=== PATIENT | female | born 1960 | race Caucasian/White ===

== ENCOUNTER 2024-07-09 05:54 | Inpatient (IN) | payer OTHER, BC ==
[~2024-07-09] VITALS: Ht 162.6 cm; Wt 107.3 kg
[2024-07-09 06:24] LABS: BASOPHILS ABSOLUTE AUTO 0.04 K/mm3 (0.00-0.23); BASOPHILS PERCENT AUTO 0 % (0-2); EOSINOPHILS PERCENT AUTO 0 % (0-6); Hematocrit 40.6 % (33.0-51.0); Hemoglobin 13.6 g/dL (11.5-16.0); IMMATURE GRAN ABSOLUTE AUTO 0.11 K/mm3 (0.00-0.10); IMMATURE GRAN PERCENT AUTO 1 % (0-1); LYMPHOCYTES ABSOLUTE AUTO 2.11 K/mm3 (0.84-5.20); LYMPHOCYTES PERCENT AUTO 14 % (21-46); MONOCYTES ABSOLUTE AUTO 1.15 K/mm3 (0.16-1.47); MONOCYTES PERCENT AUTO 8 % (4-13); Mean Corpuscular HGB 27.4 pg (26.0-34.0); Mean Corpuscular HGB Conc 33.5 g/dL (31.5-36.5); Mean Corpuscular Volume 82 fL (80-100); NEUTROPHILS ABSOLUTE AUTO 11.53 K/mm3 (1.96-9.15); NEUTROPHILS PERCENT AUTO 77 % (41-73); Platelet Count 322 K/mm3 (150-400); RDW Coefficient Variation 12.8 % (11.7-14.2); RDW Standard Deviation 37.9 fL (35.1-46.3); Red Blood Cell Count 4.97 M/mm3 (3.80-5.20); White Blood Cell Count 14.94 K/mm3 (4.00-11.30)
[2024-07-09 06:33] LABS: Source, Urine Straight Cath
[2024-07-09 06:41] LABS: Bilirubin, Urine Neg (Neg); Blood, Urine 2+ (Neg); Glucose Qualitative, Urine 4+ (Neg); Ketones, Urine 3+ (Neg); Leukocyte Esterase, Urine 2+ (Neg); Nitrite, Urine Neg (Neg); Protein, Urine 3+ (Neg); Specific Gravity, Urine 1.025 (1.003-1.022); Urobilinogen, Urine NORM (Normal)
[2024-07-09 06:45] LABS: International Normalized Ratio 1.08; Prothrombin Time Results 11.5 Sec (9.7-11.5)
[2024-07-09 06:48] LABS: Appearance, Urine Cloudy (Clear); Color, Urine Yellow (P-Yellow)
[2024-07-09 06:51] LABS: Albumin, Blood 3.3 g/dL (3.4-5.0); Albumin/Globulin Ratio 0.8 (0.8-1.8); Bilirubin, Total 0.7 mg/dL (0.1-1.0); Bun/Creatinine Ratio 22.5 (12.0-20.0); Calcium, Blood 8.5 mg/dL (8.5-10.1); Creatinine, Blood 0.89 mg/dL (0.40-1.00); Potassium, Blood 3.9 mmol/L (3.5-5.5); Total Protein, Blood 7.3 g/dL (6.4-8.2)
[2024-07-09 06:55] LABS: Bacteria Many /hpf; Red Blood Cells, Urine 0-2 /hpf (0-2); Squamous Epithelial Cells Rare /hpf (Few); White Blood Cells, Urine 50-100 /hpf (0-5)
[2024-07-09] MEDS ORDERED: CefTRIAXone Sodium 1,000 MG in NS 50 ML IV ONE (07:10)
[2024-07-09] MEDS ORDERED: NS 1,000 ML IV SCH ×2 (07:15→10:50)
[2024-07-09] MEDS ORDERED: LORazepam 2 MG/ML 1ML Injection IV ONE (07:20)
[2024-07-09] MEDS ORDERED: Ketamine HCl 100 MG / ML 5ML Vial IV ONE (08:15)
[2024-07-09 08:50] LABS: Influenza A, PCR NEGATIVE (NEGATIVE); Influenza B, PCR NEGATIVE (NEGATIVE); Resp Syncytial Virus, PCR NEGATIVE (NEGATIVE); SARS-Cov-2 (COVID-19) PCR, MMC NEGATIVE (NEGATIVE)
[2024-07-09] MEDS ORDERED: FLU VACC TS2024-25(6MOS UP)/PF 45 MCG/0.5 ML SYRINGE IM SCH (10:50)
[2024-07-09] MEDS ORDERED: Ondansetron HCl 2 MG / ML 2ML Vial IV PRN (10:50)
[2024-07-09] MEDS ORDERED: Azithromycin 500 MG in NS 250 ML IV SCH (10:59)
[2024-07-09] MEDS ORDERED: Acetaminophen 325 MG Supp PR PRN (11:20)
[2024-07-09] MEDS ORDERED: HydrALAZINE HCl 20 MG / ML 1ML Vial IV PRN (11:25)
[2024-07-09] MEDS ORDERED: Insulin Regular 100 UNIT/ML 10ML Vial SC SCH (11:30)
[2024-07-09 12:09] LABS: U Amphetamine Screen Not Detected; U Barbituate Screen Not Detected; U Benzodiazapine Screen Not Detected; U Buprenorphine Screen Not Detected; U Cannabinoids Screen DETECTED; U Cocaine Screen Not Detected; U Methadone Screen Not Detected; U Methamphetamine Screen Not Detected; U Opiates Screen DETECTED; U Oxycodone Screen Not Detected; U Phencyclidine Screen Not Detected
[2024-07-09 12:24] VITALS: BP 172/77
[2024-07-09 13:57] LABS: Adenovirus Not Detected (NOT DETECT); Bordetella pertussis Not Detected (NOT DETECT); Chlamydophila pneumoniae Not Detected (NOT DETECT); Coronavirus 229E Not Detected (NOT DETECT); Coronavirus HKU1 Not Detected (NOT DETECT); Coronavirus NL63 Not Detected (NOT DETECT); Coronavirus OC43 Not Detected (NOT DETECT); Human Metapneumovirus Not Detected (NOT DETECT); Human Rhinovirus/Enterovirus Not Detected (NOT DETECT); Influenza A/2009-H1 Not Detected (NOT DETECT); Influenza A/H1 Not Detected (NOT DETECT); Influenza A/H3 Not Detected (NOT DETECT); Influenza B Not Detected (NOT DETECT); Mycoplasma pneumoniae Not Detected (NOT DETECT); Parainfluenza Virus 1 Not Detected (NOT DETECT); Parainfluenza Virus 2 Not Detected (NOT DETECT); Parainfluenza Virus 3 Not Detected (NOT DETECT); Parainfluenza Virus 4 Not Detected (NOT DETECT); Respiratory Syncytial Virus Not Detected (NOT DETECT); SARS-Cov-2 (COVID-19), BioFire Not Detected (NOT DETECT)
--- NOTE | 2024-07-09 14:18 | NUR ---
PATIENT TRANSFERRED FROM ER TO MED SURG. PATIENT IS NOT ABLE TO RESPOND TO QUESTIONS HOWEVER IS ABLE TO RESPOND TO TOUCH HOWEVER DOES NOT OPEN EYES. PATIENT LIFE PARTNER ASHA IS IN ROOM AT BEDSIDE. LIFE PARTNER WAS UNABLE TO REMEMBER WHICH MEDICATION PATIENT IS ON HOWEVER DOES KNOW SHE FILLS AT [facility]. PATIENT IS DM HOWEVER IS UNSURE OF AMOUNT OF INSULIN DOES REMEMBER PATIENT USES NOVLIN 70/30. PATIENT NOMRALLY IS INDEPENDENT AT BASELINE. 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
[2024-07-09] MEDS ORDERED: BACL10 PO (15:23)
[2024-07-09] MEDS ORDERED: GLIP5ER PO (15:24)
[2024-07-09] MEDS ORDERED: METF500C PO (15:25)
[2024-07-09] MEDS ORDERED: LOSA25 PO (15:26)
[2024-07-09] MEDS ORDERED: NOVOLIN 70100 UNIT/4 SC (15:27)
[2024-07-09] MEDS ORDERED: CODACE30 (15:27)
[2024-07-09] MEDS ORDERED: OMEGA-3 1,0501 EACH PO (15:28)
[2024-07-09 15:31] VITALS: BP 176/82
--- NOTE | 2024-07-09 17:41 | NUR ---
PATIENT A/O X 1. PATIENT ONLY ANSWER YES TO ALL QUESTIONS WITH MUMBLING. PATIENT HAS BEEN SLEEPING HOWEVER IS AROUSABLE WHEN YOU CALL HER NAME. PATIENTS LIFE PARTNER ASHA IS AT BEDSIDE WITH PATIENT. ASHA STATES PATIENT MAY HAVE EATEN A GUMMY THAT WAS SUPPOSED TO BE CBD HOWEVER UNSURE IF IT HAD THC. ASHA IS UNSURE IF THIS EVEN OCCURED. PATIENT HAS 4 IVS RIGHT AC, RIGHT FOREARM, LEFT WRIST, LEFT FOREARM. IV RUNNING AT 100/ML HR OF NACL. MEDICATION RECONCILLATION HAS BEEN COMPLETED RECEIVED MEDICATION INFOMRATION FROM [facility] IN [place].
[2024-07-09 19:47] VITALS: BP 150/68
[2024-07-09] MEDS ORDERED: Lactobacil 2-S.Thermo-Bifido 1 1 Cap PO SCH (21:00)
[2024-07-10 04:22] VITALS: BP 184/74
[2024-07-10 05:44] LABS: BASOPHILS ABSOLUTE AUTO 0.05 K/mm3 (0.00-0.23); BASOPHILS PERCENT AUTO 0 % (0-2); EOSINOPHILS PERCENT AUTO 0 % (0-6); Hematocrit 37.7 % (33.0-51.0); Hemoglobin 12.7 g/dL (11.5-16.0); IMMATURE GRAN ABSOLUTE AUTO 0.08 K/mm3 (0.00-0.10); IMMATURE GRAN PERCENT AUTO 1 % (0-1); LYMPHOCYTES ABSOLUTE AUTO 2.32 K/mm3 (0.84-5.20); LYMPHOCYTES PERCENT AUTO 16 % (21-46); MONOCYTES ABSOLUTE AUTO 1.17 K/mm3 (0.16-1.47); MONOCYTES PERCENT AUTO 8 % (4-13); Mean Corpuscular HGB 27.5 pg (26.0-34.0); Mean Corpuscular HGB Conc 33.7 g/dL (31.5-36.5); Mean Corpuscular Volume 82 fL (80-100); Mean Platelet Volume 10.2 fL (9.1-12.4); NEUTROPHILS ABSOLUTE AUTO 10.75 K/mm3 (1.96-9.15); NEUTROPHILS PERCENT AUTO 75 % (41-73); Platelet Count 264 K/mm3 (150-400); RDW Coefficient Variation 12.6 % (11.7-14.2); RDW Standard Deviation 37.4 fL (35.1-46.3); Red Blood Cell Count 4.61 M/mm3 (3.80-5.20); White Blood Cell Count 14.37 K/mm3 (4.00-11.30)
[2024-07-10 06:46] LABS: Albumin, Blood 2.9 g/dL (3.4-5.0); Albumin/Globulin Ratio 0.8 (0.8-1.8); Bilirubin, Total 0.7 mg/dL (0.1-1.0); Bun/Creatinine Ratio 28.5 (12.0-20.0); Calcium, Blood 8.1 mg/dL (8.5-10.1); Creatinine, Blood 0.74 mg/dL (0.40-1.00); Globulin, Blood 3.6 g/dL (2.2-4.0); Potassium, Blood 3.5 mmol/L (3.5-5.5); Total Protein, Blood 6.5 g/dL (6.4-8.2)
[2024-07-10 07:19] LABS: Base Excess Venous 1.9 mmol/L; Bicarbonate Venous 26.1 mmol/L (24.0-30.0); PCO2 Venous 38.7 mmHg (38-42); pH Blood Venous 7.44 (7.34-7.37)
[2024-07-10 07:30] VITALS: BP 164/87
--- NOTE | 2024-07-10 07:53 | NUR ---
SHIFT SUMMARY PT HAS BEEN MINIMALLY RESPONSIVE THROUGH ENTIRE SHIFT. WILL OPEN HER EYES OCCASIONALLY, NOT TRACKING. PT S LIFE PARTNER HAS BEEN AT BEDSIDE THROUGHOUT SHIFT. 0615, THIS RN NOTED IV FLUIDS HANGING HAD A DIFFERENT APPEARANCE THAN WHEN IT WAS ORIGINALLY HUNG. BAG AND LINE REPLACED. DOCTOR KNOWLES ORDERED CBC, CMP, AND VBG. ORDER SUBMITTED AND RESULTS PENDING. WILL RELAY TO DAY SHIFT.
[2024-07-10] MEDS ORDERED: Enoxaparin 40 MG/0.4 ML SYR SC SCH (09:00)
[2024-07-10] MEDS ORDERED: CefTRIAXone Sodium 1,000 MG in NS 100 ML IV SCH (12:00)
[2024-07-10 13:59] LABS: Campylobacter Sp Not Detected (NOT DETECT); Cryptosporidium Not Detected (NOT DETECT); Cyclospora Cayetanensis Not Detected (NOT DETECT); E. Coli O157 Not Detected (NOT DETECT); Entamoeba Histolytica Not Detected (NOT DETECT); Enteroaggregative E. coli-EAEC Not Detected (NOT DETECT); Enteropathogenic E. coli-EPEC Not Detected (NOT DETECT); Enterotoxigenic E. coli-ETEC Not Detected (NOT DETECT); Plesiomonas Shigelloides Not Detected (NOT DETECT); Salmonella Sp Not Detected (NOT DETECT); Shiga Toxin-prod E. coli-STEC Not Detected (NOT DETECT); Shigella/Enteroin E. coli-EIEC Not Detected (NOT DETECT); Vibrio Cholerae Not Detected (NOT DETECT); Vibrio Sp Not Detected (NOT DETECT); Yersinia Enterocolitica Not Detected (NOT DETECT)
[2024-07-10 14:00] LABS: Adenovirus F 40/41 Not Detected (NOT DETECT); Astrovirus Not Detected (NOT DETECT); Giardia Lamblia Not Detected (NOT DETECT); Norovirus GI/GII Not Detected (NOT DETECT); Rotavirus A Not Detected (NOT DETECT); Sapovirus Not Detected (NOT DETECT)
[2024-07-10 15:59] VITALS: BP 158/73
--- NOTE | 2024-07-10 17:45 | NUR ---
SHIFT SUMMARY- PT HAS IMPROVED COGNITIVELY T/O THE SHIFT TODAY. SHE IS ALERT AND ABLE TO FOLLOW SOME INSTRUCTIONS TODAY. SHE BEGAN USING SINGLE SMALL WORD ANSWERS THIS EVENING. PT IS A 1PA WITH TRANSFERS TO THE BEDSIDE COMMODE. CALLED DR LO THIS EVENING AND SPOKE TO HIM ABOUT THE PT NPO STATUS. SHE APPEARS TO BE A LITTLE SWOLLEN, EVEN THOUGH SHE IS NPO. HER BG HAS BEEN CONSISTENTLY GOING UP UNTIL THIS EVENING. INSULIN CHANGED TO Q6, IVF DECREASED TO 75ML/HR. GI PANEL CAME BACK NEGATIVE, ISO DC'D. SPOKE TO DR LO ABOUT THE CT RESULT TO SEE IF HE HAD SPOKEN TO THE PT AND HER SPOUSE ABOUT THE CT RESULT. HE HAS NOT, SO THE PT IS NOT AWARE OF THE RESULT AT THIS TIME. WILL PASS ON TO THE NIGHT RN IN BEDSIDE REPORT, WITH THE EXCLUSION OF RESULTS NOT DISCUSSED WITH THE PT AND FAMILY. PT IS DOWN TO 1 IV SITE, DRESSING WAS CHANGED FOR THAT IV SITE. IT IS INFUSING NS AT 75ML/HR. NO CURRENT S&S OF DISTRES NOTED.
[2024-07-10] MEDS ORDERED: Insulin Human Lispro 100 Units/ML 3ML Syringe SC SCH (18:00)
[2024-07-10 20:03] VITALS: BP 148/72
[2024-07-10] MEDS ORDERED: Ketorolac Tromethamine 15mg Vial IV ONE (22:20)
[2024-07-11 04:56] VITALS: BP 148/68
[2024-07-11 06:04] LABS: BASOPHILS ABSOLUTE AUTO 0.07 K/mm3 (0.00-0.23); BASOPHILS PERCENT AUTO 1 % (0-2); EOSINOPHILS ABSOLUTE AUTO 0.08 K/mm3 (0.00-0.68); EOSINOPHILS PERCENT AUTO 1 % (0-6); Hematocrit 36.9 % (33.0-51.0); Hemoglobin 12.4 g/dL (11.5-16.0); IMMATURE GRAN ABSOLUTE AUTO 0.06 K/mm3 (0.00-0.10); IMMATURE GRAN PERCENT AUTO 1 % (0-1); LYMPHOCYTES ABSOLUTE AUTO 3.32 K/mm3 (0.84-5.20); LYMPHOCYTES PERCENT AUTO 33 % (21-46); MONOCYTES ABSOLUTE AUTO 0.72 K/mm3 (0.16-1.47); MONOCYTES PERCENT AUTO 7 % (4-13); Mean Corpuscular HGB 27.9 pg (26.0-34.0); Mean Corpuscular HGB Conc 33.6 g/dL (31.5-36.5); Mean Corpuscular Volume 83 fL (80-100); NEUTROPHILS ABSOLUTE AUTO 5.88 K/mm3 (1.96-9.15); NEUTROPHILS PERCENT AUTO 58 % (41-73); Platelet Count 244 K/mm3 (150-400); RDW Coefficient Variation 12.5 % (11.7-14.2); Red Blood Cell Count 4.45 M/mm3 (3.80-5.20); White Blood Cell Count 10.13 K/mm3 (4.00-11.30)
[2024-07-11 06:45] LABS: Albumin, Blood 2.7 g/dL (3.4-5.0); Albumin/Globulin Ratio 0.8 (0.8-1.8); Bilirubin, Total 0.6 mg/dL (0.1-1.0); Bun/Creatinine Ratio 25.6 (12.0-20.0); Calcium, Blood 8.5 mg/dL (8.5-10.1); Creatinine, Blood 0.78 mg/dL (0.40-1.00); Globulin, Blood 3.4 g/dL (2.2-4.0); Potassium, Blood 3.3 mmol/L (3.5-5.5); Total Protein, Blood 6.1 g/dL (6.4-8.2)
--- NOTE | 2024-07-11 06:51 | NUR ---
SHIFT SUMMARY PT HAS BEEN MUCH MORE COHERENT THIS SHIFT. SHE IS AWARE OF HER SURROUNDINGS, ABLE TO COMMUNICATE NEEDS, AND A&O X2-3. SHE IS STILL STRUGGLING SLIGHTLY WITH FINDING THE RIGHT WORDS, BUT IS ABLE TO MAKE HER NEEDS KNOWN. PT WAS COMPLAINING OF HEADACHE. GIVEN IV KETOROLAC FOR PAIN RELIEF, PT IS STILL NPO PENDING SWALLOW EVAL. WITH REEVALUATION, PT STATED SHE IS STILL HURTING, BUT IT S OPEN ENDED. THE PAIN. THIS RN ASKED CLARIFYING QUESTIONS TO DETERMINE THAT THE PAIN WAS SUBSIDING, BUT SLOWLY. PT LYING IN BED SLEEPING AT THIS TIME.
[2024-07-11 07:24] VITALS: BP 140/71
[2024-07-11] MEDS ORDERED: Potassium Chl 20MEQ/Water100ML 100 ML IV SCH (07:35)
[2024-07-11 16:05] VITALS: BP 157/80
[2024-07-11] MEDS ORDERED: Insulin Human Lispro 100 Units/ML 3ML Syringe SC SCH (16:30)
--- NOTE | 2024-07-11 17:07 | NUR ---
SHIFT SUMMARY- PT WAS ABLE TO WORK WITH SPEECH THERAPY TODAY. MEDS OK WITH WATER, REGULAR DIET. PT WAS ABLE TO WORK WITH PHYSICAL THERAPY TODAY WALKING IN THE HALLS. PT IS A 1PA TO THE BATHROOM. BED AND CHAIR ALARMS ARE NEEDED FOR SAFETY SHE IS IMPULSSIVE AND A LITTLE UNSTEADY ON HER FEET. SPOUSE HAS BEEN AT THE BEDSIDE T/O HER STAY BUT HE LEFT BREIFLY TO GET HIS OWN MEDS. PT IS CURRENTLY SITTING IN THE CHAIR, CHAIR ALARM IN PLACE, CALL LIGHT IN REACH NO S&S OF DISTRESS NOTED.
[2024-07-11] MEDS ORDERED: Insulin NPH 100 Unit / ML 10ML Vial SC SCH (21:00)
[2024-07-11] MEDS ORDERED: Calcium Carbonate 500 MG Tab Chew PO PRN (21:40)
[2024-07-11] MEDS ORDERED: Acetaminophen 500 MG Tab PO PRN (21:40)
--- NOTE | 2024-07-12 04:25 | NUR ---
SHIFT SUMMARY. PATIENT IS ALERT TO SELF AND PERSON () PATIENT IS ABLE TO GET UP c 1P SBA. PATIENT CAN ANSWER SOME SIMPLE QUESTIONS BUT HAS DIFFICULTY FINDING WORDS-PATIENT WILL THINK AND WHEN SHE IS UNABLE TO ANSWER SHE WILL SAY "I DONT KNOW" FOLLOWED WITH A LAUGH. PATIENT IS PLEASANT AND COOPERATIVE WITH CARE. IN AT BEDSIDE T/O THE NIGHT. BED ALARM ENGAGED FOR PATIENT SAFETY. BED LOCKED IN THE LOWEST POSITION WITH CALL LIGHT IN REACH. CARE IS ONGOING.
[2024-07-12 05:23] LABS: BASOPHILS ABSOLUTE AUTO 0.05 K/mm3 (0.00-0.23); BASOPHILS PERCENT AUTO 1 % (0-2); EOSINOPHILS ABSOLUTE AUTO 0.21 K/mm3 (0.00-0.68); EOSINOPHILS PERCENT AUTO 2 % (0-6); Hematocrit 35.5 % (33.0-51.0); IMMATURE GRAN ABSOLUTE AUTO 0.03 K/mm3 (0.00-0.10); IMMATURE GRAN PERCENT AUTO 0 % (0-1); LYMPHOCYTES ABSOLUTE AUTO 2.69 K/mm3 (0.84-5.20); LYMPHOCYTES PERCENT AUTO 30 % (21-46); MONOCYTES ABSOLUTE AUTO 0.61 K/mm3 (0.16-1.47); MONOCYTES PERCENT AUTO 7 % (4-13); Mean Corpuscular HGB 27.7 pg (26.0-34.0); Mean Corpuscular HGB Conc 33.8 g/dL (31.5-36.5); Mean Corpuscular Volume 82 fL (80-100); Mean Platelet Volume 10.2 fL (9.1-12.4); NEUTROPHILS ABSOLUTE AUTO 5.39 K/mm3 (1.96-9.15); NEUTROPHILS PERCENT AUTO 60 % (41-73); Platelet Count 229 K/mm3 (150-400); RDW Coefficient Variation 12.6 % (11.7-14.2); RDW Standard Deviation 37.8 fL (35.1-46.3); Red Blood Cell Count 4.33 M/mm3 (3.80-5.20); White Blood Cell Count 8.98 K/mm3 (4.00-11.30)
[2024-07-12 05:32] VITALS: BP 116/53
[2024-07-12 05:48] LABS: Albumin, Blood 2.6 g/dL (3.4-5.0); Albumin/Globulin Ratio 0.8 (0.8-1.8); Bilirubin, Total 0.4 mg/dL (0.1-1.0); Bun/Creatinine Ratio 22.5 (12.0-20.0); Calcium, Blood 8.7 mg/dL (8.5-10.1); Creatinine, Blood 0.76 mg/dL (0.40-1.00); Globulin, Blood 3.3 g/dL (2.2-4.0); Magnesium, Blood 1.5 mg/dL (1.6-2.4); Potassium, Blood 3.6 mmol/L (3.5-5.5); Total Protein, Blood 5.9 g/dL (6.4-8.2)
[2024-07-12 08:10] VITALS: BP 138/58
[2024-07-12] MEDS ORDERED: Magnesium Sulf 2 GM/Water 50ML 50 ML IV ONE (09:05)
[2024-07-12 15:32] VITALS: BP 169/88
--- NOTE | 2024-07-12 18:05 | NUR ---
SHIFT SUMMARY PT CONT LEVEL OF CARE WITH NO ACUTE CHANGES NOTED. PT NOTED TO BE A&OX2-3 WITH SOME INTERMITTEN CONFUSION NOTED. PT NOTED TO HAVE SOME TROUBLE FINDING HER WORDS. PT REMAINS AT BEDSIDE. PT IS INDEPENDENT WITH TRANSFERS AND CALLS APPROPRIATE WHEN NEEDING ASSISTANCE. PT CONT WITH NS RUNNING AT 75/HR AND ABT TX. PT NOTED TO WALK AROUND UNIT THIS SHIFT WITH HER .
[2024-07-12 19:10] VITALS: BP 169/61
[2024-07-12] MEDS ORDERED: Insulin NPH 100 Unit / ML 10ML Vial SC SCH (21:00)
[2024-07-13 05:21] VITALS: BP 154/70
[2024-07-13 05:49] LABS: BASOPHILS ABSOLUTE AUTO 0.07 K/mm3 (0.00-0.23); BASOPHILS PERCENT AUTO 1 % (0-2); EOSINOPHILS ABSOLUTE AUTO 0.27 K/mm3 (0.00-0.68); EOSINOPHILS PERCENT AUTO 3 % (0-6); Hemoglobin 12.5 g/dL (11.5-16.0); IMMATURE GRAN ABSOLUTE AUTO 0.04 K/mm3 (0.00-0.10); IMMATURE GRAN PERCENT AUTO 0 % (0-1); LYMPHOCYTES ABSOLUTE AUTO 2.77 K/mm3 (0.84-5.20); LYMPHOCYTES PERCENT AUTO 30 % (21-46); MONOCYTES ABSOLUTE AUTO 0.61 K/mm3 (0.16-1.47); MONOCYTES PERCENT AUTO 7 % (4-13); Mean Corpuscular HGB Conc 33.8 g/dL (31.5-36.5); Mean Corpuscular Volume 83 fL (80-100); Mean Platelet Volume 10.4 fL (9.1-12.4); NEUTROPHILS ABSOLUTE AUTO 5.43 K/mm3 (1.96-9.15); NEUTROPHILS PERCENT AUTO 59 % (41-73); Platelet Count 251 K/mm3 (150-400); RDW Coefficient Variation 12.6 % (11.7-14.2); RDW Standard Deviation 38.2 fL (35.1-46.3); Red Blood Cell Count 4.46 M/mm3 (3.80-5.20); White Blood Cell Count 9.19 K/mm3 (4.00-11.30)
--- NOTE | 2024-07-13 06:27 | NUR ---
SHIFT SUMMARY PATIENT IS ALERT AND ORIENTED X3. PATIENT HAS HAD NO ACUTE EVENTS THIS SHIFT. VITAL SIGNS REVIEWED. PATIENTS HAS BEEN WITH PT ALL SHIFT. PATIENT CALLS APPROPRIATELY. PAITENT HAS NS RUNNING AT 75/HR. PATIENT COMPLAINED OF ABD PAIN, MEDICATED PER EMAR. PATIENT HAS COMPLAINED OF HEADACHE AND MEDICATED PER EMAR. PATIENT HAS NO COMPLAINTS OF SOB, NAUSEA, OR VOMITTING THIS SHIFT. BED IN LOCKED AND LOWEST POSITION. CALL LIGHT IN PLACE. WILL MONITOR UNTIL SHIFT CHANGE.
[2024-07-13 06:30] LABS: Albumin, Blood 2.7 g/dL (3.4-5.0); Albumin/Globulin Ratio 0.8 (0.8-1.8); Bilirubin, Total 0.4 mg/dL (0.1-1.0); Calcium, Blood 8.9 mg/dL (8.5-10.1); Creatinine, Blood 0.81 mg/dL (0.40-1.00); Globulin, Blood 3.5 g/dL (2.2-4.0); Magnesium, Blood 1.5 mg/dL (1.6-2.4); Potassium, Blood 3.5 mmol/L (3.5-5.5); Total Protein, Blood 6.2 g/dL (6.4-8.2)
[2024-07-13 07:41] VITALS: BP 169/68
[2024-07-13] MEDS ORDERED: Mag Sulfate 1 GM/D5% 100ML 100 ML IV STA (08:20)
[2024-07-13] MEDS ORDERED: Banana Flakes/Tos 1 EA Powder Pack PO SCH (09:00)
[2024-07-13] MEDS ORDERED: Potassium Chloride 20 MEQ TabCR PO ONE (09:00)
[2024-07-13] MEDS ORDERED: ACET500 PO (11:15)
[2024-07-13] MEDS ORDERED: BANATROL PLUS1 EAC1 PO (11:15)
[2024-07-13] MEDS ORDERED: PROBIOTIC1 EA14 PO (11:16)
[2024-07-13] MEDS ORDERED: AMLO5 PO (11:16)
[2024-07-13] MEDS ORDERED: Calcium Carbon500 MG PO (11:16)
[2024-07-13] MEDS ORDERED: AMOCLA875 PO (11:17)
--- NOTE | 2024-07-13 11:35 | NUR ---
DISCHARGE NOTE MS SANDHU RESPONDS APPROPRIATELY TO CONVERSATION, BUT SHE HAS TO THINK ABOUT SOME OF THE WORDS SHE SAYS CAUSING A DELAY SOMETIMES IN HER SPEACH. SHE IS ORIENTATED TO SELF, HER , [place], DATE, SHE WAS UNABLE TO REMEMBER WHY SHE WAS HERE UNTIL I REMINDED HER. SHE DESCRIBES A CRACKLING FEELING TO HER RIGHT EAR. VISUAL CHANGES OF SHAPES MOVING AND COLORS IN FRONT OF HER VISION. SHE SAID SHE HAS HAD ALL OF THESE SYMPTOMS SINCE PRIOR TO ADMISSION, NOTHING NEW TODAY. SHE HAS NAUSEA AND SAID THAT SHE VOMITED AFTE HER BREAKFAST. SHE REPORTS THAT NAUSEA IS NOT NEW AND SHE TAKES ZOFRAN AT HOME. SHE REPORTS DIARRHEA STOOL, GIVEN BANANATROL THIS AM. SHE IS STEADY WALKING. HER IS WITH HER. SHE AND HER VERBALISED UNDERSTANDING OF WRITTEN AND VERBAL DISCHARGE INSTRUCTIONS. NO NEW QUESTIONS OR CONCERNS PRIOR TO DISCHARGE. PIV AND TELEMETRY REMOVED BY VACUUM PAN OPERATOR AND PT ESCORTED VIA W/C TO MEET HER AT THE EXIT.
== END 2024-07-13 11:43 | disposition home or self-care (01) | DRG 871 ==
LOC: ER 05:54 → MEDS 10:46
PROVIDERS: Emergency Medicine; Internal Medicine; Student in an Organized Health Care Education/Training Program; ADMIT Internal Medicine
PROC: 3E03329 Introduction of Other Anti-infective into Peripheral Vein, Percutaneous Approach (ICD-10-PCS; principal; 2024-07-09)
PROC: 0T9B70Z Drainage of Bladder with Drainage Device, Via Natural or Artificial Opening (ICD-10-PCS; 2024-07-09)
DX: A41.9 Sepsis, unspecified organism (principal); G93.41 Metabolic encephalopathy; J18.9 Pneumonia, unspecified organism; N39.0 Urinary tract infection, site not specified; Z68.41 Body mass index [BMI] 40.0-44.9, adult; E87.21 Acute metabolic acidosis; E11.9 Type 2 diabetes mellitus without complications; R65.20 Severe sepsis without septic shock; R41.0 Disorientation, unspecified; I16.0 Hypertensive urgency; D32.0 Benign neoplasm of cerebral meninges; E83.42 Hypomagnesemia; R19.7 Diarrhea, unspecified; R11.2 Nausea with vomiting, unspecified; B96.20 Unspecified Escherichia coli [E. coli] as the cause of diseases classified elsewhere; S01.111A Laceration without foreign body of right eyelid and periocular area, initial encounter; W01.198A Fall on same level from slipping, tripping and stumbling with subsequent striking against other object, initial encounter; Z88.5 Allergy status to narcotic agent
CPT/HCPCS: 0202U; 0241U; 36415; 62270; 70450; 70496; 70498; 71045; 72125; 80053; 81001; 82803; 82947; 83036; 83605; 83735; 83880; 84145; 84484; 85025; 85610; 85730; 87040; 87077; 87086; 87186; 87507; 92610; 93005; 93010; 96361; 96365; 96375; 97110; 97112; 97161; 99285-25; A9270; J0456; J0696; J1650; J1815; J1885; J2060; J2405; J3475; J3480; J7030; J7050; P9612; Q9967

== ENCOUNTER → 2025-04-08 | Outpatient (CLI) | payer BC ==
[~2025-04-08] MED LIST: ACET500 PO; AMLO5 PO; AMOCLA875 PO; BACL10 PO; BANATROL PLUS1 EAC1 PO; CODACE30; Calcium Carbon500 MG PO; GLIP5ER PO; LOSA25 PO; METF500C PO; NOVOLIN 70100 UNIT/4 SC; OMEGA-3 1,0501 EACH PO; PROBIOTIC1 EA14 PO
[2025-04-08 18:27] LABS: Bilirubin, Urine Neg (Neg); Color, Urine Yellow (P-Yellow); Glucose Qualitative, Urine Neg (Neg); Ketones, Urine 1+ (Neg); Leukocyte Esterase, Urine 1+ (Neg); Protein, Urine 2+ (Neg); Specific Gravity, Urine 1.025 (1.003-1.022); Urobilinogen, Urine 1+ (Normal)
[2025-04-08 18:53] LABS: Red Blood Cells, Urine 0-2 /hpf (0-2)
== END ==
LOC: LAB 16:23 → LAB SHORT 16:23
PROVIDERS: Family Medicine
DX: R30.0 Dysuria (principal)
CPT/HCPCS: 81001; 87077; 87086; 87186

== ENCOUNTER → 2025-04-13 | Outpatient (CLI) | payer BC ==
[2025-04-14 14:35] LABS: Stool Occult Bld Immuno 1 Negative (NEGATIVE)
[2025-04-14 14:55] LABS: C DIFFICILE DNA NEGATIVE (Negative)
[2025-04-16 11:58] LABS: CALPROTECTIN,FECAL 67 ug/g (<=49)
[2025-04-16 14:43] LABS: PANCREATIC ELASTASE,FECAL 340 ug/g (>=100)
== END ==
LOC: LAB 12:00 → LAB SHORT 12:00 → LAB FUT 04-08 16:45 → EDSTATUS 04-08 16:45
PROVIDERS: Family Medicine
DX: K52.9 Noninfective gastroenteritis and colitis, unspecified (principal)
CPT/HCPCS: 82274; 82653; 83993; 87015; 87045; 87046; 87205; 87338; 87493; 87899

== ENCOUNTER → 2025-06-29 | Outpatient (CLI) | payer BC ==
[2025-07-02 14:46] LABS: CALPROTECTIN,FECAL 172 ug/g (<=49)
[2025-07-03 23:10] LABS: OVA AND PARASITE,FECAL INTERP Negative (Negative)
== END ==
LOC: LAB 06:34 → LAB SHORT 06:34
PROVIDERS: Family Medicine
DX: K52.9 Noninfective gastroenteritis and colitis, unspecified (principal)
CPT/HCPCS: 83993; 87177; 87209